=== PATIENT | female | born 1955 | race Caucasian/White ===

== ENCOUNTER 2019-05-15 07:19 | Emergency (ER) | payer BC, SELFPAY ==
--- OUTSIDE RECORDS SUMMARY | 2019-05-15 07:21 | XMS REPORT ---
:1955 [facility] Address [address] [place] [address] Dr. Farrar [address] [place] [address] Care Team Providers Name Role Phone DR MELISA BREWER Unavailable Unavailable Problems This patient has no known problems. Allergies, Adverse Reactions, Alerts This patient has no known allergies or adverse reactions. Medications This patient has no known medications. Encounters Start End Encounter Admission Attending Care Care Encounter Date/Time Date/Time Type Type Clinicians Facility Department ID 2018-08-24 2018-08-24 Outpatient Ramya BREWER [facility] [id number] 08:06:00 11:08:00 MELISA 2017-12-01 2017-12-01 Outpatient Ramya BREWER [facility] [id number] 09:30:00 10:50:00 MELISA 2017-10-06 2017-10-06 Outpatient Ramya BREWER [facility] [id number] 07:47:00 09:40:00 MELISA
[2019-05-15 08:09] LABS: Absolute Lymphocytes (CBC) 1.6 K/uL (0.7-4.9); Basophils % 0.3 % (0-1.3); Hematocrit 40.9 % (36.0-45.0); MPV 7.1 fL (7.6-11.3); RBC Red Blood Cell Count 4.52 M/uL (3.86-4.86)
[2019-05-15] MEDS ORDERED: MEPERIDINE HCL 25 MG/0.5 ML ONE (08:09)
[2019-05-15] MEDS ORDERED: ONDANSETRON 4 MG/2 ML VIAL ONE ×2 (08:09→09:56)
[2019-05-15 08:17] LABS: Urine Bacteria <20 /HPF (<20)
[2019-05-15 08:18] LABS: Urine Culture Reflex Order NOT NEEDED; Urine Mucus 1+ /HPF (NONE SEEN)
[2019-05-15 08:20] LABS: Albumin 4.1 g/dL (3.4-5.0); Bilirubin Direct 0.1 mg/dL (0-0.2); Bilirubin Total 0.4 mg/dL (0.2-1.0); Potassium 3.9 mmol/L (3.5-5.1); Protein, Total 8.5 g/dL (6.4-8.2)
--- NOTE | 2019-05-15 08:59 | RAD REPORT ---
EXAM DESCRIPTION: CTAbdomen Pelvis W Contrast - 05/15/2019 8:35 am CLINICAL HISTORY: Abdominal pain. LLQ abd pain/flank pain COMPARISON: No comparisons TECHNIQUE: Biphasic CT imaging of the abdomen and pelvis was performed with 100 ml non-ionic IV cont rast. All CT scans are performed using dose optimization technique as appropriate and may include automated exposure control or mA/KV adjustment according to patient size. FINDINGS: The lung bases are clear. The liver, spleen, pancreas, adrenal glands and right kidney are within normal limits. [address] one is present left UVJ resulting in mild left hydronephrosis. No bowel obstruction, free air, free fluid or abscess. The appendix is normal. No evidence of signi ficant lymphadenopathy. Anterolisthesis of L4 on 5 is seen, grade 1. Prominent disc herniation is identified at L5- S1, incom pletely assessed. IMPRESSION: 6 mm oblong stone left UVJ resulting in mild left hydronephrosis.
[2019-05-15] MEDS ORDERED: KETOROLAC 30 MG/ML INJ ONE (09:42)
[2019-05-15] MEDS ORDERED: TAMSULOSIN 0.4 MG SR CAP ONE (09:42)
--- NOTE | 2019-05-15 10:46 | ER ---
Nurse's Notes [facility] Name: Sarina Su Age: 63 yrs Sex: Female : 1955 Arrival Date: 05/15/2019 Time: 07:22 Bed 15 Private MD: Diagnosis: Ureterolithiasis Presentation: 05/14 07:32 Chief complaint: Patient states: LLQ pain and nausea that began 1 day ago . Pt reports ss that she has been under a lot of stress lately. Coronavirus screen: The patient has NOT traveled to a country currently being monitored by the [facility] within the last 14 days. Proceed with normal triage procedures. Ebola Screen: Patient denies exposure to infectious person. Patient denies travel to an Ebola-affected area in the 21 days before illness onset. Initial Sepsis Screen: Does the patient meet any 2 criteria? HR > 90 bpm. Does the patient have a suspected source of infection? No. Patient's initial sepsis screen is negative. Risk Assessment: Do you want to hurt yourself or someone else? Patient reports no desire to harm self or others. 07:32 Method Of Arrival: Ambulatory ss 07:32 Acuity: LUPE 3 ss Historical: - Allergies: 07:42 No Known Allergies; ss - Home Meds: 07:42 phentermine oral oral [Active]; ss - PMHx: 07:42 Depression; ss - Immunization history:: Adult Immunizations up to date. - Social history:: Smoking status: Patient denies any tobacco usage or history of. - Family history:: not pertinent. - Hospitalizations: : No recent hospitalization is reported. Screenin:30 Abuse screen: Denies threats or abuse. Denies injuries from another. Nutritional ph screening: No deficits noted. Tuberculosis screening: No symptoms or risk factors identified. Fall Risk None identified. Assessment: 08:00 General: Appears in no apparent distress. uncomfortable, Behavior is calm, cooperative, ph appropriate for age. Pain: Complains of pain in left lower quadrant. Neuro: Level of Consciousness is awake, alert, obeys commands, Oriented to person, place, time, situation. Cardiovascular: Capillary refill < 3 seconds in bilateral fingers Patient's skin is warm and dry. Respiratory: Airway is patent Respiratory effort is even, unlabored, Respiratory pattern is regular, symmetrical. GI: Abdomen is flat, non-distended, Reports lower abdominal pain, nausea. : Reports pain in left flank(s). Derm: Skin is intact, is healthy with good turgor, Skin is pink, warm \T\ dry. normal. Musculoskeletal: Circulation, motion, and sensation intact. Range of motion: intact in all extremities. 09:00 Reassessment: Patient appears in no apparent distress at this time. Patient and/or ph family updated on plan of care and expected duration. Pain level reassessed. Patient is alert, oriented x 3, equal unlabored respirations, skin warm/dry/pink. Vital Signs: 07:32 BP 156 / 93; Pulse 91; Resp 18; Temp 98.1(TE); Pulse Ox 98% on R/A; Weight 68.04 kg; ss Height 5 ft. 0 in. (152.40 cm); Pain 6/10; 09:15 BP 142 / 87; Pulse 84; Resp 18; Pulse Ox 98% on R/A; Pain 4/10; ph 07:32 Body Mass Index 29.29 (68.04 kg, 152.40 cm) ED Course: 07:22 Patient arrived in ED. mr 07:26 Arnold Villafuerte MD is Attending Physician. rn 07:32 Arm band placed on right wrist. ss 07:41 Triage completed. ss 07:45 Urine collected: clean catch specimen, clear. 3 07:48 Chelsea Tabares, RN is Primary Nurse. ph 07:50 Initial lab(s) drawn, by ny, sent to lab. Inserted saline lock: 20 gauge in right dh3 antecubital area, using aseptic technique. Blood collected. 08:30 Patient has correct armband on for positive identification. Bed in low position. Call ph light in reach. Pulse ox on. NIBP on. 08:30 No provider procedures requiring assistance completed. ph 08:36 CT Abd/Pelvis - IV Contrast Only In Process Unspecified. EDMS 10:45 Nikia Whitehead MD is Referral Physician. rn 10:45 IV discontinued, intact, bleeding controlled, No redness/swelling at site. Pressure ph dressing applied. Administered Medications: 08:13 Drug: Zofran (Ondansetron) 4 mg Route: IVP; Site: right antecubital; ph 08:30 Follow up: Response: No adverse reaction ph 08:14 Drug: Demerol 25 mg Route: IVP; Site: right antecubital; ph 08:45 Follow up: Response: No adverse reaction; Pain is decreased ph 08:55 Drug: TORadol - Ketorolac 15 mg Route: IVP; Site: right antecubital; ph 09:30 Follow up: Response: No adverse reaction; Pain is decreased ph 08:55 Drug: Zofran (Ondansetron) 4 mg Route: IVP; Site: right antecubital; ph 09:15 Follow up: Response: No adverse reaction ph 10:06 Drug: Flomax 0.4 mg Route: PO; ph 10:15 Follow up: Response: No adverse reaction ph Outcome: 10:46 Discharge ordered by . rn 11:24 Patient left the ED. ph 11:24 Discharged to home ambulatory, with friend. ph 11:24 Condition: good 11:24 Discharge instructions given to patient, Instructed on discharge instructions, follow up and referral plans. medication usage, Demonstrated understanding of instructions, follow-up care, medications, Prescriptions given X 3. Signatures: Dispatcher [employer] Magdalene Crespo Roman, MD MD rn Smirch, Shelby, RN RN Chelsea Tabares RN RN Omer, Sravani formerly [facility]
--- NOTE | 2019-05-15 10:46 | EDPHYS ---
Physician Documentation [facility] Name: Sarina Su Age: 63 yrs Sex: Female : 1955 Arrival Date: 05/15/2019 Time: 07:22 Bed 15 Private MD: ED Physician Arnold Villafuerte HPI: 05/14 07:39 This 63 yrs old Female presents to ER via Unassigned with complaints of rn Nausea, flank pain. 07:39 The patient presents to the emergency department with nausea, abdominal pain, of the rn left lower quadrant. 07:41 Onset: The symptoms/episode began/occurred yesterday. Possible causes: unknown. The rn symptoms are aggravated by movement, The symptoms are alleviated by nothing. Severity of symptoms: At their worst the symptoms were mild in the emergency department the symptoms are unchanged. The patient has not experienced similar symptoms in the past. The patient has not recently seen a physician. Reports LLQ/flank pain, began yesterday, assoc with nausea and constipation, thinks is related to her stressful week, had horse and and other social stressors. Patient and family member state that when she gets stressed out or anxious she usually reacts with nausea/vomiting and body aches. No fever. No trauma. No hx of kidney stones. Also reported with constipation has been straining to go to bathroom and thinks may have strained and pulled muscle. . Historical: - Allergies: 07:42 No Known Allergies; ss - Home Meds: 07:42 phentermine oral oral [Active]; ss - PMHx: 07:42 Depression; ss - Immunization history:: Adult Immunizations up to date. - Social history:: Smoking status: Patient denies any tobacco usage or history of. - Family history:: not pertinent. - Hospitalizations: : No recent hospitalization is reported. ROS: 07:41 Constitutional: Negative for fever, chills, and weight loss, Eyes: Negative for injury, rn pain, redness, and discharge, Neck: Negative for injury, pain, and swelling, Cardiovascular: Negative for chest pain, palpitations, and edema, Respiratory: Negative for shortness of breath, cough, wheezing, and pleuritic chest pain, Abdomen/GI: + left lower abd pain and nausea, + constipation Back: Negative for injury and pain, : Negative for injury, bleeding, discharge, and swelling, MS/Extremity: Negative for injury and deformity, Skin: Negative for injury, rash, and discoloration, Neuro: Negative for headache, weakness, numbness, tingling, and seizure. Exam: 07:41 Constitutional: This is a well developed, well nourished patient who is awake, alert, rn and in no acute distress. Head/Face: Normocephalic, atraumatic. Cardiovascular: Regular rate and rhythm. No pulse deficits. Respiratory: No increased work of breathing, no retractions or nasal flaring. Abdomen/GI: soft, + LLQ tenderness, mild, non-distended, no masses Back: No spinal tenderness. No costovertebral tenderness. Full range of motion. Skin: Warm, dry with normal turgor. Normal color with no rashes, no lesions, and no evidence of cellulitis. MS/ Extremity: Pulses equal, no cyanosis. Neurovascular intact. Full, normal range of motion. Equal circumference. No tenderness at hip. Neuro: Awake and alert, GCS 15, oriented to person, place, time, and situation. Cranial nerves II-XII grossly intact. Motor strength 5/5 in all extremities. Sensory grossly intact. Cerebellar exam normal. Vital Signs: 07:32 BP 156 / 93; Pulse 91; Resp 18; Temp 98.1(TE); Pulse Ox 98% on R/A; Weight 68.04 kg; ss Height 5 ft. 0 in. (152.40 cm); Pain 6/10; 09:15 BP 142 / 87; Pulse 84; Resp 18; Pulse Ox 98% on R/A; Pain 4/10; ph 07:32 Body Mass Index 29.29 (68.04 kg, 152.40 cm) ss MDM: 07:26 Patient medically screened. rn 10:44 Differential diagnosis: Nonspecific abd pain, diverticulitis, viral gastroenteritis, rn gastroenteritis, kidney stone. Data reviewed: vital signs, nurses notes, lab test result(s), radiologic studies, CT scan, and as a result, I will discharge patient. Counseling: I had a detailed discussion with the patient and/or guardian regarding: the historical points, exam findings, and any diagnostic results supporting the discharge/admit diagnosis, lab results, radiology results, the need for outpatient follow up, to return to the emergency department if symptoms worsen or persist or if there are any questions or concerns that arise at home. Response to treatment: the patient's symptoms have markedly improved after treatment, and as a result, I will discharge patient. Special discussion: I discussed with the patient/guardian in detail that at this point there is no indication for admission to the hospital. It is understood, however, that if the symptoms persist or worsen the patient needs to return immediately for re-evaluation. Based on the history and exam findings, there is no indication for further emergent testing or inpatient evaluation. I discussed with the patient/guardian the need to see the primary care provider for further evaluation of the symptoms. I discussed with the patient/guardian the need to see the urologist for further evaluation of the symptoms. ED course: Feels much better, UVJ stone likely now in bladder, will dc home with pcp and urology f/u. . 05/14 07:39 Order name: Basic Metabolic Panel; Complete Time: 08:35 rn 05/14 07:39 Order name: CBC with Diff; Complete Time: 08:35 rn 05/14 07:39 Order name: Creatinine for Radiology; Complete Time: 08:35 rn 05/14 07:39 Order name: Hepatic Function; Complete Time: 08:35 rn 05/14 07:39 Order name: Lipase; Complete Time: 08:35 rn 05/14 07:39 Order name: Urine Microscopic Only; Complete Time: 08:35 rn 05/14 07:39 Order name: IV Saline Lock; Complete Time: 07:49 rn 05/14 07:39 Order name: CT Abd/Pelvis - IV Contrast Only; Complete Time: 09:11 rn 05/14 08:03 Order name: Urine Dipstick--Ancillary (enter results); Complete Time: 11:16 bd 05/14 07:39 Order name: Labs collected and sent; Complete Time: 07:49 rn 05/14 07:39 Order name: Urine Dipstick-Ancillary (obtain specimen); Complete Time: 07:49 rn Administered Medications: 08:13 Drug: Zofran (Ondansetron) 4 mg Route: IVP; Site: right antecubital; ph 08:30 Follow up: Response: No adverse reaction ph 08:14 Drug: Demerol 25 mg Route: IVP; Site: right antecubital; ph 08:45 Follow up: Response: No adverse reaction; Pain is decreased ph 08:55 Drug: TORadol - Ketorolac 15 mg Route: IVP; Site: right antecubital; ph 09:30 Follow up: Response: No adverse reaction; Pain is decreased ph 08:55 Drug: Zofran (Ondansetron) 4 mg Route: IVP; Site: right antecubital; ph 09:15 Follow up: Response: No adverse reaction ph 10:06 Drug: Flomax 0.4 mg Route: PO; ph 10:15 Follow up: Response: No adverse reaction ph Disposition: 05/15/19 10:46 Discharged to Home. Impression: Ureterolithiasis. - Condition is Stable. - Discharge Instructions: Kidney Stones, Dietary Guidelines to Help Prevent Kidney Stones. - Prescriptions for Zofran ODT 4 mg Oral tablet,disintegrating - place 1 tablet by TRANSLINGUAL route every 8 hours As needed; 20 tablet. Ibuprofen 800 mg Oral Tablet - take 1 tablet by ORAL route every 12 hours As needed take with food; 20 tablet. Flomax 0.4 mg Oral Capsule, Sust. Release 24 hr - take 1 capsule by ORAL route once daily 1/2 hour following the same meal each day. Stop taking once pain has passed or stone has passed.; 3 capsule. - Medication Reconciliation Form, Thank You Letter, Antibiotic Education, Prescription Opioid Use form. - Follow up: Nikia Whitehead MD; When: As needed; Reason: Recheck today's complaints, Re-evaluation by your physician. - Problem is new. - Symptoms have improved. Signatures: Dispatcher [employer] EDArnold Hercules MD MD rn Smirch, Shelby, RN RN ss Hall, Patricia, RN RN ph Corrections: (The following items were deleted from the chart) 11:24 10:46 05/15/2019 10:46 Discharged to Home. Impression: Ureterolithiasis. Condition is ph Stable. Forms are Medication Reconciliation Form, Thank You Letter, Antibiotic Education, Prescription Opioid Use. Follow up: Nikia Whitehead; When: As needed; Reason: Recheck today's complaints, Re-evaluation by your physician. Problem is new. Symptoms have improved. rn
[2019-05-15 11:02] LABS: Urine Blood 1+ (NEG); Urine Glucose NEGATIVE (NEG); Urine Protein TRACE (NEG); Urine Specific Gravity >1.030 (1.005-1.030)
[2019-05-15 11:31] VITALS: TEMP 98.1; O2SAT 98
[2019-05-15 11:32] VITALS: BP 142/87
== END 2019-05-15 11:24 | disposition home or self-care (01) ==
LOC: ER 07:19
DX: N20.1 Calculus of ureter (principal)
CPT/HCPCS: 85025; 80048; 36415; 80076; 83690; 74177; 96375; 96374; 99284; Q9967; J2175; J2405 ×2; 81003; 81015

== ENCOUNTER 2019-05-16 21:23 | Emergency (ER) | payer BC ==
--- OUTSIDE RECORDS SUMMARY | 2019-05-16 21:25 | XMS REPORT ---
:1955 [facility] [address] [place] [address] Dr. [address] [place] [address] Care Team Providers Name Role Phone DR MELISA BREWER Unavailable Unavailable Problems This patient has no known problems. Allergies, Adverse Reactions, Alerts This patient has no known allergies or adverse reactions. Medications This patient has no known medications. Encounters Start End Encounter Admission Attending Care Care Encounter Date/Time Date/Time Type Type Clinicians Facility Department ID 2018-08-24 2018-08-24 [facility] [id number] 08:06:00 11:08:00 MELISA 2017-12-01 2017-12-01 Outpatient Ramya BREWER [facility] [id number] 09:30:00 10:50:00 MELISA 2017-10-06 2017-10-06 Outpatient Ramya BREWER [facility] [id number] 07:47:00 09:40:00 MELISA
[2019-05-16] MEDS ORDERED: ONDANSETRON 4 MG/2 ML VIAL ONE (21:36)
[2019-05-16] MEDS ORDERED: KETOROLAC 30 MG/ML INJ ONE (21:36)
[2019-05-16] MEDS ORDERED: HYDROMORPHONE HCL 1 MG/ML INJ ONE (21:36)
[2019-05-16] MEDS ORDERED: NA CHLORIDE 0.9% 1,000 ML ONE (21:37)
[2019-05-16] MEDS ORDERED: CEFTRIAXONE/SWI 1gm 1 GM/10 ML SYR ONE (21:37)
[2019-05-16 22:53] LABS: Absolute Lymphocytes (CBC) 1.9 K/uL (0.7-4.9); Basophils % 0.4 % (0-1.3); Hematocrit 33.7 % (36.0-45.0); MPV 7.1 fL (7.6-11.3); RBC Red Blood Cell Count 3.75 M/uL (3.86-4.86)
[2019-05-16 23:12] LABS: Albumin 3.1 g/dL (3.4-5.0); Bilirubin Direct 0.1 mg/dL (0-0.2); Bilirubin Total 0.5 mg/dL (0.2-1.0); Potassium 3.3 mmol/L (3.5-5.1); Protein, Total 6.9 g/dL (6.4-8.2)
[2019-05-17 01:18] LABS: Urine Culture Reflex Order NOT NEEDED
[2019-05-17 01:19] LABS: Urine RBC <5 /HPF (NONE SEEN); Urine Urothelial Cells <5 /HPF (NONE SEEN)
[2019-05-17 01:20] LABS: Urine Bacteria <20 /HPF (<20)
[2019-05-17] MEDS ORDERED: FENTANYL CITR 100 MCG/2 ML ONE (02:22)
--- NOTE | 2019-05-17 03:09 | ER ---
Nurse's Notes [facility] Name: Sarina Su Age: 63 yrs Sex: Female : 1955 Arrival Date: 05/16/2019 Time: 21:24 Bed 2 Private MD: Diagnosis: Calculus of kidney with calculus of ureter Presentation: 05/15 21:32 Chief complaint: Patient states: "I was here the other day and saw Dr. Villafuerte for a jd3 kidney stone and was told that it should pass. I took my ibuprofen and Flomax today and it is not helping the this evening. I have an appointment tomorrow with a urologist tomorrow about the stone as well.". Coronavirus screen: The patient has NOT traveled to a country currently being monitored by the CDC within the last 14 days. The patient has NOT had contact with any known and/or suspected case of coronavirus. Proceed with normal triage procedures. Ebola Screen: Patient negative for fever greater than or equal to 101.5 degrees Fahrenheit, and additional compatible Ebola Virus Disease symptoms. Initial Sepsis Screen: Does the patient meet any 2 criteria? No. Patient's initial sepsis screen is negative. Does the patient have a suspected source of infection? No. Patient's initial sepsis screen is negative. Risk Assessment: Do you want to hurt yourself or someone else? Patient reports no desire to harm self or others. 21:32 Acuity: LUPE 3 jd3 21:32 Method Of Arrival: Ambulatory jd3 Triage Assessment: 20:00 General: Behavior is cooperative, anxious, crying, restless. lw1 20:00 Pain: Pain currently is 10 out of 10 on a pain scale. EENT: Poor dentition noted. lw1 Neuro: No deficits noted. Cardiovascular: No deficits noted. Respiratory: No deficits noted. : No deficits noted. Derm: No deficits noted. Musculoskeletal: No deficits noted. 22:10 General: Appears uncomfortable. Pain: Complains of pain in anterior aspect of left lw1 lateral abdomen and abdomen diffusely Pain currently is 10 out of 10 on a pain scale. GI: No deficits noted. Historical: - Allergies: 21:37 No Known Allergies; jd3 - Home Meds: 21:37 phentermine Oral [Active]; jd3 - PMHx: 21:37 Depression; jd3 - PSHx: 21:37 None; jd3 - Immunization history:: Adult Immunizations up to date. - Social history:: Smoking status: Patient denies any tobacco usage or history of. Screenin:30 Abuse screen: Denies threats or abuse. Denies injuries from another. Nutritional lw1 screening: No deficits noted. Tuberculosis screening: No symptoms or risk factors identified. Fall Risk Assessment: 21:42 Reassessment: Patient appears in no apparent distress at this time. pt and pt spouse sg state " we just had the CT studies done Wednesday morning with , we have the follow up appointment scheduled tomorrow morning, shes just too uncomfortable now so we are here for something to help control the pain." request to see the doctor prior to having more studies done at this time. 22:45 GI: Bowel sounds present X 4 quads. Abd is soft Abdomen is tender to palpation in left lw1 lower quadrant. : No deficits noted. 05/16 01:22 Reassessment: pt reports " I need to get out of here, I need you to take all of these sg wires off of me, leave this in my hand so I can have another pain shot, let me go home so I can make it to my appointment tomorrow morning with the kidney doctor. Why the other morning did the report from the CT come back so fast, but tonight its taking so long?!" pt educated on the processes of radiology over night as opposed to the process of the day radiology reports and readings. pt stated understanding, to bedside to update pt on results of CT scan and need for transfer at this time. 03:01 Pain: Denies pain. lw1 03:02 Reassessment: PATIENT STATED THAT SHE IS FEELING BETTER AFTER THE MEDICATION, UPDATED lw1 PATIENT ON ACCEPTANCE OF HOSPITAL AND THE ARRIVAL OF AMBULANCE. PATIENT VERBALIZED UNDERSTANDING AND AGREED. Vital Signs: 05/15 21:36 BP 144 / 62; Pulse 87; Resp 17 S; Temp 98.0(TE); Pulse Ox 97% on R/A; Weight 68.04 kg jd3 (R); Height 5 ft. 0 in. (152.40 cm) (R); Pain 10/10; 22:54 BP 121 / 59; Pulse 84; Resp 22; Pulse Ox 100% on R/A; Pain 0/10; lw1 23:35 BP 134 / 75; Pulse 86; Resp 20; Pulse Ox 99% on R/A; Pain 3/10; lw1 05/16 00:14 BP 137 / 83; Pulse 98; Resp 20; Pulse Ox 98% on R/A; Pain 3/10; lw1 02:57 BP 148 / 75; Pulse 94; Resp 20; Temp 98.0; Pulse Ox 100% on R/A; Pain 0/10; lw1 05/15 21:36 Body Mass Index 29.29 (68.04 kg, 152.40 cm) jd3 ED Course: 05/15 21:24 Patient arrived in ED. cl3 21:26 Dov Albarado MD is Attending Physician. emily 21:28 Humberto Lowery MD is Attending Physician. bb 21:36 Triage completed. jd3 21:36 Arm band placed on. jd3 21:46 Emery Cazares, RN is Primary Nurse. lw1 22:10 Inserted saline lock: 22 gauge in right hand, using aseptic technique. Blood collected. lw1 22:41 CT Stone Protocol In Process Unspecified. EDMS 22:41 Repeat lab(s) drawn. by me, sent to lab. sg 22:43 No provider procedures requiring assistance completed. Initial lab(s) drawn, by me, lw1 sent to lab. 22:55 Patient has correct armband on for positive identification. Bed in low position. Call lw1 light in reach. Side rails up X 1. Pulse ox on. NIBP on. Noise minimized. Lights dimmed. Turned to right side. 05/16 00:00 Urine collected: clean catch specimen, clear. sg 00:25 Urine collected: has been sent to lab as ordered. sg 04:09 Patient transferred, IV remains in place. intact, No redness/swelling at site. lw1 Administered Medications: 05/15 22:13 Drug: TORadol 30 mg Route: IVP; Site: right hand; ea 22:40 Follow up: Response: No adverse reaction; Pain is decreased; Anxiety decreased; Blood lw1 pressure is lowered 22:16 Drug: Dilaudid 1 mg Route: IVP; Site: right hand; ea 22:39 Follow up: Response: No adverse reaction; Pain is decreased; Anxiety decreased; Blood lw1 pressure is lowered 22:16 Drug: Zofran (Ondansetron) 4 mg Route: IVP; Site: right hand; ea 22:39 Follow up: Response: No adverse reaction; Nausea is decreased 22:17 Drug: NS 0.9% 1000 ml Route: IV; Rate: 1 bolus; Site: right hand; ea 05/16 03:30 Follow up: IV Status: Completed infusion; IV Intake: 1000ml 05/15 22:38 Drug: Rocephin 1 grams Route: IV; Rate: 1 per protocol; Site: right hand; lw05/16 02:58 Follow up: Response: No adverse reaction; IV Intake: 1000ml 02:25 Drug: fentaNYL (PF) 25 mcg Route: IVP; Site: right hand; lw 02:58 Follow up: Response: Pain is decreased lw 03:59 Drug: Ativan 1 mg {Note: RIGHT HAND 22 GA.} Route: IM; Site: Other; lw 04:06 Follow up: GIVEN FOR AMBULANCE TRANSPORT lw Intake: 02:58 IV: 1000ml; Total: 1000ml. lw 03:30 IV: 1000ml; Total: 2000ml. lw Outcome: 03:08 ER care complete, transfer ordered by . tw4 04:00 Transferred by ground EMS to [facility]. lw1 04:00 Condition: improved 04:05 Patient left the ED. lw1 04:08 Transferred by ground EMS Note: report called to Ladan ESQUEDA at [facility] Addendum: 05/21/2019 08:47 Addendum: Culture Results: Positive urine culture. Phone call Attempt #1 Pt transferred s s to [facility]. Called and spoke with press operator automatic who states that patient has been discharged home. Signatures: Dispatcher [employer] EDTed Jaquez RN RN sg Anderson, Corey, MD MD cha Ballard, Brenda, RN RN bb Smirch, Shelby, RN RN ss Antunez, Elena, RN RN ea Davies, Jonathon, RN RN jd3 Wadley, Terrence, MD MD twMax Holman 3 Emery Cazares RN RN lw1
--- NOTE | 2019-05-17 03:09 | EDPHYS ---
Physician Documentation [facility] Name: Sarina Su Age: 63 yrs Sex: Female : 1955 Arrival Date: 05/16/2019 Time: 21:24 Bed 2 Private MD: ED Physician Humberto Lowery HPI: 05/16 03:09 This 63 yrs old Female presents to ER via Ambulatory with complaints of tw4 Possible Kidney Stone. 03:09 The patient complains of pain in the left mid back. The pain does not radiate. Onset: tw4 The symptoms/episode began/occurred yesterday. Modifying factors: The symptoms are alleviated by nothing. the symptoms are aggravated by nothing. Associated signs and symptoms: The patient has no apparent associated signs or symptoms. Severity of pain: At its worst the pain was moderate. The patient has not experienced similar symptoms in the past. Historical: - Allergies: 05/15 21:37 No Known Allergies; jd3 - Home Meds: 21:37 phentermine Oral [Active]; jd3 - PMHx: 21:37 Depression; jd3 - PSHx: 21:37 None; jd3 - Immunization history:: Adult Immunizations up to date. - Social history:: Smoking status: Patient denies any tobacco usage or history of. ROS: 05/16 03:09 Constitutional: Negative for fever, chills, and weight loss, Eyes: Negative for injury, tw4 pain, redness, and discharge, Cardiovascular: Negative for chest pain, palpitations, and edema, Respiratory: Negative for shortness of breath, cough, wheezing, and pleuritic chest pain, Abdomen/GI: Negative for abdominal pain, nausea, vomiting, diarrhea, and constipation, MS/Extremity: Negative for injury and deformity, Skin: Negative for injury, rash, and discoloration, Neuro: Negative for headache, weakness, numbness, tingling, and seizure. Back: Positive for flank pain, Negative for injury or acute deformity, decreased range of motion, pain at rest. Exam: 03:09 Constitutional: This is a well developed, well nourished patient who is awake, alert, tw4 and in no acute distress. Head/Face: Normocephalic, atraumatic. Cardiovascular: Regular rate and rhythm with a normal S1 and S2. No gallops, murmurs, or rubs. Normal PMI, no JVD. No pulse deficits. Respiratory: Lungs have equal breath sounds bilaterally, clear to auscultation and percussion. No rales, rhonchi or wheezes noted. No increased work of breathing, no retractions or nasal flaring. Abdomen/GI: Soft, non-tender, with normal bowel sounds. No distension or tympany. No guarding or rebound. No evidence of tenderness throughout. Back: No spinal tenderness. No costovertebral tenderness. Full range of motion. MS/ Extremity: Pulses equal, no cyanosis. Neurovascular intact. Full, normal range of motion. Neuro: Awake and alert, GCS 15, oriented to person, place, time, and situation. Cranial nerves II-XII grossly intact. Motor strength 5/5 in all extremities. Sensory grossly intact. Cerebellar exam normal. Normal gait. Vital Signs: 05/15 21:36 BP 144 / 62; Pulse 87; Resp 17 S; Temp 98.0(TE); Pulse Ox 97% on R/A; Weight 68.04 kg jd3 (R); Height 5 ft. 0 in. (152.40 cm) (R); Pain 10/10; 22:54 BP 121 / 59; Pulse 84; Resp 22; Pulse Ox 100% on R/A; Pain 0/10; lw1 23:35 BP 134 / 75; Pulse 86; Resp 20; Pulse Ox 99% on R/A; Pain 3/10; lw1 05/16 00:14 BP 137 / 83; Pulse 98; Resp 20; Pulse Ox 98% on R/A; Pain 3/10; lw1 02:57 BP 148 / 75; Pulse 94; Resp 20; Temp 98.0; Pulse Ox 100% on R/A; Pain 0/10; lw1 05/15 21:36 Body Mass Index 29.29 (68.04 kg, 152.40 cm) jd3 MDM: 05/15 21:26 Patient medically screened[address] [facility] 05/16 03:09 Differential diagnosis: nephrolithiasis. Data reviewed: vital signs, nurses notes. Data tw4 reviewed: lab test result(s), CBC, electrolytes, radiologic studies, CT scan. Data interpreted: Pulse oximetry: Interpretation: normal. Counseling: I had a detailed discussion with the patient and/or guardian regarding: the historical points, exam findings, and any diagnostic results supporting the discharge/admit diagnosis, lab results, radiology results. Medication response: Response to treatment: and as a result, I will admit patient. 05/15 21:28 Order name: Basic Metabolic Panel; Complete Time: 00:[address] [facility] 05/16 00:44 Interpretation: Normal except: CRE 1.53; K 3.3; GLUC 126; GFR 34. [facility] 05/15 21:28 Order name: CBC with Diff; Complete Time: 00:[address] [facility] 05/16 00:44 Interpretation: Normal except: WBC 8.5; RBC 3.75; HGB 11.3; HCT 33.7; MPV 7.1. [facility] 05/15 21:28 Order name: Creatinine for Radiology; Complete Time: 00:[address] [facility] 05/16 00:45 Interpretation: Normal except: CRE 1.51; GFR 35. [facility] 05/15 21:28 Order name: Hepatic Function; Complete Time: 00:[address] [facility] 05/16 00:45 Interpretation: ALK 118; ALB 3.1; GLOB 3.8; A/G 0.8. [facility] 05/15 21:28 Order name: Lipase; Complete Time: 00:[address] [facility] 05/16 00:45 Interpretation: Within normal limits: LIP 137. [facility] 05/15 21:28 Order name: Urine Culture [facility] 05/15 21:28 Order name: CT Stone Protocol [facility] 05/16 00:31 Order name: Urine Microscopic Only; Complete Time: 02:46 [facility] 05/15 21:28 Order name: IV Saline Lock; Complete Time: 22:[address] [facility] 05/15 21:28 Order name: Labs collected and sent; Complete Time: 22:[address] [facility] 05/15 21:28 Order name: Urine Dipstick-Ancillary (obtain specimen); Complete Time: 00:[address] [facility] Administered Medications: 05/15 22:13 Drug: TORadol 30 mg Route: IVP; Site: right hand; ea 22:40 Follow up: Response: No adverse reaction; Pain is decreased; Anxiety decreased; Blood lw1 pressure is lowered 22:16 Drug: Dilaudid 1 mg Route: IVP; Site: right hand; ea 22:39 Follow up: Response: No adverse reaction; Pain is decreased; Anxiety decreased; Blood lw1 pressure is lowered 22:16 Drug: Zofran (Ondansetron) 4 mg Route: IVP; Site: right hand; 22:39 Follow up: Response: No adverse reaction; Nausea is decreased 22:17 Drug: NS 0.9% 1000 ml Route: IV; Rate: 1 bolus; Site: right hand; 05/16 03:30 Follow up: IV Status: Completed infusion; IV Intake: 1000ml 05/15 22:38 Drug: Rocephin 1 grams Route: IV; Rate: 1 per protocol; Site: right hand; [facility] 05/16 02:58 Follow up: Response: No adverse reaction; IV Intake: 1000ml 02:25 Drug: fentaNYL (PF) 25 mcg Route: IVP; Site: right hand; 02:58 Follow up: Response: Pain is decreased 03:59 Drug: Ativan 1 mg {Note: RIGHT HAND 22 GA.} Route: IM; Site: Other; 04:06 Follow up: GIVEN FOR AMBULANCE TRANSPORT Disposition: 05/17/19 03:08 Transfer ordered to [facility]. Diagnosis is Calculus of kidney with calculus of ureter. - Reason for transfer: Higher level of care. - Accepting physician is Dr Edwards. - Condition is Stable. - Problem is new. - Symptoms have improved. Signatures: Dispatcher [employer] EDMS Ted Curtis, RN Dov Alegria MD MD cha Antunez, Elena, RN Tenzin Arauz ea, RN RN jd3 Wadley, Terrence, MD MD tw4 Emery Cazares RN RN lw1 Corrections: (The following items were deleted from the chart) 04:05 03:08 05/17/2019 03:08 Transfer ordered to [facility]. Diagnosis is Calculus of lw1 kidney with calculus of ureter. Reason for transfer: Higher level of care. Accepting physician is Dr Edwards. Condition is Stable. Problem is new. Symptoms have improved. tw4
[2019-05-17] MEDS ORDERED: LORazepam 2 MG/ML VIAL ONE (03:50)
[2019-05-17 09:08] VITALS: BP 148/75; TEMP 98; O2SAT 100
--- NOTE | 2019-05-17 11:07 | RAD REPORT ---
EXAM DESCRIPTION: Stone Protocol CLINICAL HISTORY: 63 years Female FLANK PAIN COMPARISON: May 15, 2019. TECHNIQUE: Images were obtained in axial, sagittal, and coronal planes. This exam was performed according to our departmental dose-optimization program which includes use of Automated Exposure Control, adjustment of the mA and/or kV according to patient size and/or use of i terative reconstruction technique. FINDINGS: Contrast is identified within the left collecting system. Moderate left hydronephrosis and hydroureter seen. Persistent 7 mm calculus left ureterovesicular junction. New perinephric stranding and ill-defined fluid inferior left kidney likely related to extravasation of urine. No obstructing renal calcification on right. No hydronephrosis on right. No additional abnormality in volving the bladder. No abnormality involving the liver, spleen, pancreas, gallbladder or adrenal glands bilaterally. No dilatation abdominal aorta. No adenopathy or abnormal fluid collections seen. Appendix within normal limits. No bowel obstruction, perforation, or inflammation. Moderate-sized hiatal hernia. Airspace attenuation lateral right lower lobe consistent with atelectat ic change versus infiltrate. No acute osseous abnormality. IMPRESSION: Persistent 7 mm calculus left ureterovesicular junction with associated moderate left hy dronephrosis and hydroureter. Perinephric stranding and ill-defined fluid inferior left kidney likely related to inferior forniceal rupture and extravasation of urine. Electronically signed by: Nila Herron MD 05/16/2019 10:59 PM CDT Due to temporary technical issues with the PACS/Fluency reporting system, reports are being signed by the in house radiologist as a courtesy to ensure prompt reporting. The interpreting radiologist is f ully responsible for the content of the report.
== END 2019-05-17 04:05 | disposition short-term general hospital (02) ==
LOC: ER 21:23
DX: N20.2 Calculus of kidney with calculus of ureter (principal); F32.9 Major depressive disorder, single episode, unspecified
CPT/HCPCS: 96361; 87088; 85025; 87086; 80048; 36415; 80076; 87077; 87186; 81015; 83690; 76377; 74176; 96375; 96372; 96374; 99285; J3010; J1170; J0696; J7030; J2405

== ENCOUNTER 2020-11-10 08:47 | Inpatient (IN) | payer BC ==
--- OUTSIDE RECORDS SUMMARY | 2020-11-10 08:50 | XMS REPORT | Continuity of Care Document ---
:1955 Author Organization [facility] t Address [address] [place] [address] Care Team Providers Name Role Phone Asked, No Pcp Primary Care Physician Unavailable UVALDO Attending Clinician Unavailable DR OSMAN Attending Clinician Unavailable UVALDO Admitting Clinician Unavailable DR OSMAN Admitting Clinician Unavailable Problems Condition Condition Condition Status Onset Resolution Last Treating Co mments Source Name Details Category Date Date Treatment Clinician Date Nephrolith Nephrolith Disease Active 2019-0 M ethodi iasis iasis 3 00:00: [facility] l DEMETRICE (acute DEMETRICE (acute Disease Active 2020-0 M ethodi kidney kidney 3 st injury) injury) 00:00: Hospita 00 l Allergies, Adverse Reactions, Alerts This patient has no known allergies or adverse reactions. Social History Social Habit Start Date Stop Date Quantity Comments Source Sex Assigned [birth year] [facility] 00:00:00 00:00:00 Smoking Status Start Date Stop Date Source Unknown if ever smoked [facility] Medications This patient has no known medications. Procedures This patient has no known procedures. Plan of Care Planned Activity Planned Date Details Comments Source Future Scheduled Test COLONOSCOPY SCREENING [facility] [code = COLONOSCOPY SCREENING] Future Scheduled Test SHINGLES VACCINES (#1) [facility] [code = SHINGLES VACCINES (#1)] Future Scheduled Test INFLUENZA VACCINE [code [facility] = INFLUENZA VACCINE] Future Scheduled Test COVID-19 VACCINE (1) [facility] [code = COVID-19 VACCINE (1)] Future Scheduled Test Hepatitis C screening [facility] (procedure) [code = 536985550] Future Scheduled Test Screening for malignant [facility] neoplasm of cervix (procedure) [code = 275746907] Future Scheduled Test BREAST CANCER SCREENING [facility] [code = BREAST CANCER SCREENING] Encounters Start End Encounter Admission Attending Care Care Encounter Source Date/Time Date/Time Type Type Clinicians Facility Department ID 2019-05-17 2019-05-19 Inpatient EMILIANO BAILON [facility] [id number] [place] 00:00:00 00:00:[address] 2018-08-24 2018-08-24 Outpatient Ramya BREWER [facility] [id number] [place] 08:06:00 11:08:00 [facility] 2017-12-01 2017-12-01 [facility] [id number] [place] 09:30:00 [facility] 2017-10-06 2017-10-06 Outpatient Ramya BREWER [facility] [id number] [place] 07:47:00 09:40:00 [facility] Results This patient has no known results.
[2020-11-10] MEDS ORDERED: ONDANSETRON 4 MG/2 ML VIAL ONE ×2 (11:19→18:28)
[2020-11-10] MEDS ORDERED: NA CHLORIDE 0.9% 1,000 ML ONE ×2 (11:19→17:25)
[2020-11-10] MEDS ORDERED: HYDROMORPHONE HCL 0.5 MG/0.5 ML INJ ONE (11:19)
[2020-11-10 11:41] LABS: Absolute Lymphocytes (CBC) 1.2 K/uL (0.7-4.9); Basophils % 0.6 % (0-1.3); Hematocrit 40.8 % (36.0-45.0); Lymphocytes % 15.3 % (15.3-44.8); MPV 6.1 fL (7.6-11.3); RBC Red Blood Cell Count 4.48 M/uL (3.86-4.86)
[2020-11-10 11:59] LABS: Albumin 4.1 g/dL (3.4-5.0); Bilirubin Total 0.7 mg/dL (0.2-1.0); Potassium 4.1 mmol/L (3.5-5.1); Protein, Total 9.4 g/dL (6.4-8.2)
[2020-11-10 13:37] LABS: Urine Blood Negative (Negative); Urine Glucose Negative (Negative); Urine Protein Negative (Negative); Urine pH 5.5 (5.0-7.0)
--- NOTE | 2020-11-10 13:54 | P.HP ---
Certification for Inpatient With expected LOS: >2 Midnights <Evelyn Salcedo - Last Filed: 11/10/20 14:45> Patient admitted to: Inpatient With expected LOS: >2 Midnights Patient will require the following post-hospital care: None Practitioner: I am a practitioner with admitting privileges, knowledge of patient current condition, hospital course, and medical plan of care. Services: Services provided to patient in accordance with Admission requirements found in Title 42 Section 412.3 of the Code of Federal Regulations <Celestine Glez - Last Filed: 11/10/20 16:16> Patient History Date of Service: 11/10/20 Reason for admission: SBO History of Present Illness: 65 year old White female presents to ED after two days of severe abdominal pain , nausea , vomiting and constipation. She stated that on evening after being in her usual state of health she began to experience sharp lower abdominal pain that radiated throughout all four quadrants. The pain waxed and waned and was about a 4/10. The pain was sudden and she did not take any medications to alleviate the discomfort. The abdominal pain was quickly followed by constipation. Her abdominal pain continued and she developed nausea and then vomited two times yesterday. She was able to drink water and keep it down. Today , her pain had intensified and she came to ED for further evaluation. She denies any recent fever , hemoptysis, diarrhea , hematochezia, melena. Upon arrival to the ED, she received zofran ,tylenol. <Evelyn Salcedo - Last Filed: 11/10/20 14:45> Date of Service: 11/10/20 Home medications list reviewed: Yes - Past Medical/Surgical History Past Medical History: Patient denies medical history -: Bariatric procedure Psychosocial/ Personal History: Home - Family History Family History: Reviewed- Non-Contributory - Social History Smoking Status: Unknown if ever smoked Alcohol use: No CD- Drugs: No Caffeine use: No Place of Residence: Home <NewtonCelestine - Last Filed: 11/10/20 16:16> Allergies No Known Allergies Allergy (Verified 04/01/16 09:57) Home Medications: Biotin 1,000 mcg PO DAILY 03/31/16 Multivitamin [Multivitamins] 1 each PO DAILY 03/31/16 Phentermine HCl [Adipex-P] 37.5 mg PO EVERY 7TH DAY 03/31/16 Naproxen Sodium [Aleve] 220 mg PO DAILY PRN 04/01/16 Review of Systems General: Unremarkable Eyes: Unremarkable ENT: Unremarkable Respiratory: Unremarkable Cardiovascular: Unremarkable Gastrointestinal: As per HPI Musculoskeletal: Unremarkable Integumentary: Unremarkable Neurological: Unremarkable <Evelyn Salcedo - Last Filed: 11/10/20 14:45> Physical Examination - Physical Exam General: Alert, In no apparent distress, Oriented x3 HEENT: Atraumatic, Normocephalic, PERRLA, Mucous membr. moist/pink, Sclerae nonicteric Neck: Supple, 2+ carotid pulse no bruit, Without JVD or thyroid abnormality Respiratory: Clear to auscultation bilaterally Cardiovascular: No edema, Normal pulses, Regular rate/rhythm Gastrointestinal: Hypoactive, No masses, No guarding, Tenderness Musculoskeletal: No clubbing, No swelling, No contractures, No erythema, No tenderness, No warmth Integumentary: No rashes, No breakdown, No significant lesion, No tenderness/swelling, No erythema Neurological: Normal gait, Normal speech, Normal strength at 5/5 x4 extr - Studies Laboratory Data (last 24 hrs) 11/10/20 11:25: Sodium 135 L, Potassium 4.1, BUN 20 H, Creatinine 1.03, Glucose 118 H, Total Bilirubin 0.7, AST 24, ALT 31, Alkaline Phosphatase 171 H, Lipase 146 11/10/20 11:25: WBC 7.60, Hgb 13.8, Hct 40.8, Plt Count 649 H <Evelyn Salcedo - Last Filed: 11/10/20 14:45> - Studies Laboratory Data (last 24 hrs) 11/10/20 11:25: Sodium 135 L, Potassium 4.1, BUN 20 H, Creatinine 1.03, Glucose 118 H, Total Bilirubin 0.7, AST 24, ALT 31, Alkaline Phosphatase 171 H, Lipase 146 11/10/20 11:25: WBC 7.60, Hgb 13.8, Hct 40.8, Plt Count 649 H <Celestine Glez - Last Filed: 11/10/20 16:16> Assessment and Plan - Plan Assessment: 65 year old female here for evaluation of nausea , vomiting , constipation and abdominal pain x 2-3 days. Plan: Acute abdominal pain secondary to small bowel obstruction and internal hernia: CT abdomen pending NPO from now IV fluids Surgery consulted. IV abx cipro/flagyl started. She will undergo surgery tomorrow. Pain meds as needed Monitor electrolytes Discharge Plan: Home Plan to discharge in: 72 Hours - Advance Directives Does patient have a Living Will: No Does patient have a Durable POA for Healthcare: No Time Spent Managing Pts Care (In Minutes): 55 <Evelyn Salcedo - Last Filed: 11/10/20 14:45> - Plan Case discussed in detail with physician chiropractor assistant. Agree with plan of care. Will discuss further with surgery. Patient remains n.p.o. Continue IV antibiotic therapy and IV fluids. Continue pain medication. If with increased nausea and vomiting patient may require NG tube. Impression: Nausea, abdominal pain secondary to small bowel obstruction with internal hernia Plan: Continue with above plan of care. Patient seen and evaluated. Patient re sting in bed. No distention noted. Pain well controlled. Continue with IV pain medication. Continue with IV nausea medication. Continue with IV fluids. Surgery to evaluate. Monitor for passage of gas or stool. Patient may require surgical intervention if no improvement. Care discussed with family member I will turn the service over to the hospitalist team tomorrow. I will go plan of care with him. DVT prophylaxis: Lovenox CODE STATUS: Full code Advance care planning: Home at discharge <Celestine Glez - Last Filed: 11/10/20 16:16>
[2020-11-10] MEDS ORDERED: ONDANSETRON 4 MG/2 ML VIAL IV PRN (13:57)
[2020-11-10] MEDS ORDERED: NA CHLORIDE 0.9% 1,000 ML IV SCH (14:00)
[2020-11-10] MEDS ORDERED: Mastisol Adhesive Liq ONE (14:13)
[2020-11-10] MEDS ORDERED: CIPROFLOXACIN 400mg IV 400 MG/200 ML BAG IV ONE (14:37)
[2020-11-10] MEDS ORDERED: METRONIDAZOLE 500mg IVPB 500 MG/100 ML BAG IV ONE (14:37)
[2020-11-10] MEDS ORDERED: LORazepam 2 MG/ML VIAL ONE (14:43)
--- NOTE | 2020-11-10 15:51 | ER ---
Nurse's Notes [facility] Name: Sarina Su Age: 65 yrs Sex: Female : 1955 Arrival Date: 11/10/2020 Time: 12:43 Bed 25 Private MD: Diagnosis: Complete intestinal obstruction, unspecified as to cause Presentation: 11/10 11:00 Chief complaint: Patient states: ABDOMINAL PAIN. Coronavirus screen: At this time, the bp client does not indicate any symptoms associated with coronavirus-19. Ebola Screen: No symptoms or risks identified at this time. Initial Sepsis Screen: Does the patient meet any 2 criteria? No. Patient's initial sepsis screen is negative. Does the patient have a suspected source of infection? No. Patient's initial sepsis screen is negative. Risk Assessment: Do you want to hurt yourself or someone else? Patient reports no desire to harm self or others. Onset of symptoms is unknown. 11:00 Method Of Arrival: Ambulatory bp 11:00 Acuity: LUPE 3 bp Triage Assessment: 11:00 General: Appears distressed, uncomfortable, ill, obese, Behavior is cooperative, bp appropriate for age, agitated, anxious, crying. Pain: Complains of pain in abdomen. EENT: No deficits noted. Neuro: No deficits noted. Cardiovascular: No deficits noted. Respiratory: No deficits noted. GI: Abdomen is non-distended, Abdomen is tender to palpation X 4 quads. : No signs and/or symptoms were reported regarding the genitourinary system. Derm: No deficits noted. Musculoskeletal: No deficits noted. - Immunization history:: Client reports having NOT received the Covid vaccine. - Social history:: Smoking status: unknown. Screenin:00 Abuse screen: Denies threats or abuse. Denies injuries from another. Nutritional bp screening: No deficits noted. Tuberculosis screening: No symptoms or risk factors identified. Fall Risk None identified. Assessment: 11:00 General: SEE TRIAGE NOTE. bp 13:00 Reassessment: No changes from previously documented assessment. Patient and/or family bp updated on plan of care and expected duration. Pain level reassessed. ALL CURRENT ORDERS COMPLETED. 14:30 Reassessment: PT RESISTING NGT PLACEMENT. BENEFITS EXPLAINED, BUT PT REMAINS bp NON-COMPLIANT. 16:10 Reassessment: IRIS YEN, SISTER, . bp Vital Signs: 11:00 BP 165 / 78; Pulse 84; Resp 16; Temp 98; Pulse Ox 100% ; bp 12:00 BP 165 / 78; Pulse 87; Resp 19; Pulse Ox 100% ; bp 13:00 BP 165 / 80; Pulse 83; Resp 17; Pulse Ox 99% ; bp 15:00 BP 163 / 99; Pulse 92; Resp 17; Pulse Ox 97% ; bp ED Course: 11:00 Patient has correct armband on for positive identification. Bed in low position. Call bp light in reach. Side rails up X2. Adult w/ patient. 11:10 Inserted saline lock: 20 gauge in left antecubital area, using aseptic technique. Blood bp collected. 12:43 Patient arrived in ED. iw 12:51 Suma Nguyễn MD is Attending Physician. sp3 13:05 Michelet Mckeon, RN is Primary Nurse. bp 13:49 Celestine Glez DO is Hospitalizing Provider. sp3 13:54 Triage completed. bp Administered Medications: 14:30 Drug: Ativan (LORazepam) 1 mg Route: IVP; Site: left antecubital; bp 15:06 Follow up: Response: No adverse reaction bp Outcome: 13:50 Decision to Hospitalize by Provider. sp3 11/12 13:52 Patient left the ED. Signatures: Sarai Church, RN DHEERAJ Alta Frances RN RN Michelet Mckeon, DHEERAJ ESQUEDA bp Suma Nguyễn MD MD sp3
--- NOTE | 2020-11-10 15:51 | EDPHYS ---
Physician Documentation [facility] Name: Sarina Su Age: 65 yrs Sex: Female : 1955 Arrival Date: 11/10/2020 Time: 12:43 Bed 25 Private MD: ED Physician Suma Nguyễn HPI: 11/10 13:24 This 65 yrs old Female presents to ER via Unassigned with unknown complaint. sp3 13:24 See paper chart for downtime charting.. sp3 - Immunization history:: Client reports having NOT received the Covid vaccine. - Social history:: Smoking status: unknown. Vital Signs: 11:00 BP 165 / 78; Pulse 84; Resp 16; Temp 98; Pulse Ox 100% ; bp 12:00 BP 165 / 78; Pulse 87; Resp 19; Pulse Ox 100% ; bp 13:00 BP 165 / 80; Pulse 83; Resp 17; Pulse Ox 99% ; bp 15:00 BP 163 / 99; Pulse 92; Resp 17; Pulse Ox 97% ; bp MDM: 12:51 Patient medically screened. sp3 11/10 15:45 Order name: CBC with Automated Diff EDMS 11/10 15:45 Order name: Comprehensive Metabolic Panel EDMS 11/10 15:45 Order name: Lipase EDMS 11/10 15:45 Order name: Urine Dipstick-Ancillary EDMS 11/10 15:45 Order name: Creatine Phosphokinase EDMS 11/11 03:11 Order name: Protime (+INR) EDMS 11/11 03:11 Order name: PTT, Activated Partial Thromb EDMS 11/11 03:11 Order name: Lactate EDMS 11/11 03:11 Order name: CBC with Automated Diff EDMS 11/11 03:24 Order name: Comprehensive Metabolic Panel EDMS 11/11 03:24 Order name: Liver (Hepatic) Function EDMS 11/11 03:24 Order name: Phosphorus EDMS 11/11 03:24 Order name: Magnesium EDMS 11/11 03:24 Order name: Amylase EDMS 11/10 20:46 Order name: CT EDMS 11/11 03:24 Order name: Lipase EDMS 11/11 09:49 Order name: RAD EDMS 11/11 18:57 Order name: CORONAVIRUS EDMS 11/11 19:54 Order name: SARS-COV-2 RT PCR EDMS 11/12 02:48 Order name: Lactate EDMS 11/12 03:01 Order name: PTT, Activated Partial Thromb EDMS 11/12 03:02 Order name: CBC with Automated Diff EDMS 11/12 03:11 Order name: Comprehensive Metabolic Panel EDMS 11/12 03:11 Order name: Liver (Hepatic) Function EDMS 11/12 03:11 Order name: Phosphorus EDMS 11/12 03:11 Order name: Magnesium EDMS 11/12 03:11 Order name: Amylase EDMS 11/12 03:11 Order name: Lipase EDMS 11/12 08:03 Order name: RAD EDMS 11/12 08:04 Order name: RAD EDMS Administered Medications: 14:30 Drug: Ativan (LORazepam) 1 mg Route: IVP; Site: left antecubital; bp 15:06 Follow up: Response: No adverse reaction bp Disposition Summary: 11/10/20 13:50 Hospitalization Ordered Hospitalization Status: Inpatient Admission sp3 Provider: Celestine Glez sp3 Condition: Stable sp3 Problem: new sp3 Symptoms: are unchanged sp3 Bed/Room Type: Standard sp3 Location: [facility] ER HOLD(11/10/20 16:28) bp Room Assignment: ERHOLD-(11/10/20 16:28) bp Diagnosis - Complete intestinal obstruction, unspecified as to cause sp3 Forms: - Medication Reconciliation Form sp3 - SBAR form sp3 Signatures: Dispatcher [employer] [facility] Michelet Mckeon, RN RN bp Suma Nguyễn MD MD sp3 Corrections: (The following items were deleted from the chart) 16:28 13:50 Telemetry/MedSurg (Inpatient) sp3 bp 16:28 13:50 sp3 bp
[2020-11-10] MEDS: D5 0.9 NS 1,000 ML IV SCH (17:00)
[2020-11-10] MEDS ORDERED: D5W 1,000 ML IV ONE (17:25)
[2020-11-10] MEDS ORDERED: MORPHINE 2 MG/ML SYR ONE ×2 (17:53→22:28)
[2020-11-10] MEDS: MORPHINE 2 MG/ML SYR IV PRN ×2 (18:00→22:04)
[2020-11-10 18:58] VITALS: BMI 29.2
[2020-11-10] MEDS ORDERED: HYDRALAZINE HCL 20 MG/ML VIAL IV PRN (20:14)
--- NOTE | 2020-11-10 20:45 | RAD REPORT ---
EXAM DESCRIPTION: CTAbdomen Pelvis W Contrast - 11/10/2020 5:17 pm CLINICAL HISTORY: . abd pain COMPARISON: Abdomen Pelvis W Contrast dated 05/15/2019 TECHNIQUE: Biphasic CT imaging of the abdomen and pelvis was performed with 100 ml non-ionic IV cont rast. All CT scans are performed using dose optimization technique as appropriate and may include automated exposure control or mA/KV adjustment according to patient size. FINDINGS: Lower chest: Irregular airspace opacities in the lower lungs, right greater than left. Liver: No acute abnormality or suspicious lesions. Biliary: Cholecystectomy. Stomach: Mildly distended stomach. Duodenum: Duodenum is mildly distended. Pancreas: No significant abnormality. Spleen: No significant abnormality. Adrenal: No suspicious lesions. Kidney/ureter: No hydronephrosis. No renal calculi. Renal lesions which are too small to characterize but statistically benign. Retroperitoneum: No retroperitoneal adenopathy. Vascular: No aneurysm. Bowel: The small bowel including the duodenum and proximal jejunum are mildly dilated. The jejunum me asures up to 4.2 centimeters There is an abrupt transition point as the small-bowel takes a sharp tur n toward the left. There is associated mesenteric edema.. Normal appendix. Peritoneum: Mesenteric edema. Bladder: Grossly unremarkable. Reproductive: No adnexal masses. Bones: No acute fracture. Other: n/a IMPRESSION: Proximal jejunal dilatation and duodenal distension with abrupt transition point. The co urse of the jejunum which is sharply angulated at the transition point raises concern for an internal hernia. Recommend surgical consultation. Irregular airspace disease in the lung bases could represent pneumonia or sequela of recent pneumonia .
[2020-11-11] MEDS: D5 0.9 NS 1,000 ML IV SCH ×3 (02:33→17:37)
[2020-11-11] MEDS: ACETAMINOPHEN 500 MG TAB PO PRN ×2 (02:57→19:22)
[2020-11-11 03:01] LABS: Absolute Lymphocytes (CBC) 1.6 K/uL (0.7-4.9); Basophils % 0.6 % (0-1.3); Hematocrit 36.2 % (36.0-45.0); Lymphocytes % 20.3 % (15.3-44.8); MPV 6.4 fL (7.6-11.3); RBC Red Blood Cell Count 3.95 M/uL (3.86-4.86)
[2020-11-11 03:03] LABS: Protime INR 0.98
[2020-11-11] MEDS ORDERED: ACETAMINOPHEN 500 MG TAB ONE ×2 (03:16→19:47)
[2020-11-11 03:22] LABS: Albumin 3.5 g/dL (3.4-5.0); Bilirubin Direct 0.2 mg/dL (0-0.2); Bilirubin Total 0.5 mg/dL (0.2-1.0); Magnesium 2.1 mg/dL (1.8-2.4); Phosphorus 3.4 mg/dL (2.5-4.9); Potassium 4.2 mmol/L (3.5-5.1); Protein, Total 7.7 g/dL (6.4-8.2)
[2020-11-11] MEDS ORDERED: HYDRALAZINE HCL 20 MG/ML VIAL ONE ×2 (04:50→22:24)
--- NOTE | 2020-11-11 09:18 | CON ---
Date of Consultation: 11/11/2020 Reason: Small bowel obstruction. History Of Present Illness: The patient is a 65-year-old female who comes in to the emergency room with 2 days of abdominal pain, nausea, vomiting, and constipation. She states that it start ed evening after she ate some spaghetti and meatballs. She has not had a bowel movement for a couple of days, and she denies passing gas, but she states that her pain is much better now. Ther e is no pain, no nausea, no vomiting today. No sore throat, runny nose, cough, headaches, or dizzine ss. No chest pain. No fever or chills. Review of Systems: Otherwise unremarkable. Past Medical History: Significant for obesity. Past Surgical History: Lap-Band insertion and removal. Allergies: NONE. Social History: The patient does not smoke or drink alcohol. Family History: Noncontributory. Physical Examination: Vital Signs: Stable. She is afebrile. General: She is awake, alert, and oriented x3. Head and Neck: Cranial nerves 2 through 12 are grossly within normal limits. No neck masses. No JV D. Throat clear. Neck supple. Chest: Clear. Heart: S1 and S2. Abdomen: Soft, nondistended, nontender. Positive bowel sounds. Extremities: Neurovascularly intact. Neuro: Nonfocal. Laboratory Data: White count is normal. There is no left shift today. There was slight left shift yesterday. INR is 0.98. Chemistry reviewed. There is no acidosis. CT of the abdomen and pelvis re viewed. Proximal jejunal dilatation and duodenal distention with abrupt transition point, sharply an gulated raises concern for an internal hernia and recommend surgical consultation. The nishant swenson had an abdominal x-ray done today which has not been read by the radiologist yet but looking at it is no worse than yesterday and it appears to be air in the colon. Assessment: A 65-year-old female with abdominal pain and possible small bowel obstruction with inter nal herniation. Recommendations: Clinically, the patient does not appear to be in any acute distress at this time. I would recommend getting an official reading on the x-ray, may be keeping her n.p.o. for an another day and then when she starts having some bowel function, we can begin her on clear liquids. If she d oes not, then she may benefit from a small bowel series and further evaluation. Should she not impro ve with medical management, she may need surgical intervention. Plan of care discussed in detail wit h the patient. /MODL Voice ID: [id number] Report ID: [id number]
[2020-11-11] MEDS ORDERED: D5 0.45 NS 0 ML IV ONE (09:22)
[2020-11-11] MEDS ORDERED: D5 0.9 NS 1,000 ML IV ONE ×2 (09:28→18:47)
--- NOTE | 2020-11-11 09:49 | RAD REPORT ---
EXAM DESCRIPTION: RAD - Abdomen 1 View (KUB) - 11/11/2020 7:01 am CLINICAL HISTORY: Abdomen pain. FINDINGS: Mildly dilated loop of jejunum within left upper quadrant. Remainder the bowel gas pattern is unremarkable. This could represent an ileus or partial small bowel obstruction
[2020-11-11] MEDS ORDERED: LORazepam 2 MG/ML VIAL IV ONE (10:16)
[2020-11-11] MEDS ORDERED: LORazepam 2 MG/ML VIAL ONE (10:34)
[2020-11-11] MEDS ORDERED: MINERAL OIL 30 ML UCUP PO ONE (17:31)
[2020-11-11] MEDS ORDERED: MINERAL OIL 30 ML UCUP PO SCH (21:00)
[2020-11-12] MEDS: D5 0.9 NS 1,000 ML IV SCH ×2 (00:17→06:11)
[2020-11-12] MEDS ORDERED: D5W 1,000 ML IV ONE ×2 (00:53→05:23)
[2020-11-12 02:38] LABS: Absolute Lymphocytes (CBC) 1.8 K/uL (0.7-4.9); Basophils % 0.5 % (0-1.3); Hematocrit 33.3 % (36.0-45.0); MPV 6.4 fL (7.6-11.3); RBC Red Blood Cell Count 3.64 M/uL (3.86-4.86)
[2020-11-12 02:55] LABS: ALT/SGPT 16 U/L (12-78); AST/SGOT 12 U/L (15-37); Albumin 2.8 g/dL (3.4-5.0); Alkaline Phosphatase 119 U/L (45-117); Amylase 86 U/L (25-115); BUN Blood Urea Nitrogen 11 mg/dL (7-18); Bicarbonate 27 mmol/L (21-32); Bilirubin Direct < 0.1 mg/dL (0-0.2); Bilirubin Total 0.5 mg/dL (0.2-1.0); Glucose Level 124 mg/dL (74-106); Lipase 243 U/L (73-393); Magnesium 2.2 mg/dL (1.8-2.4); Phosphorus 3.1 mg/dL (2.5-4.9); Potassium 3.3 mmol/L (3.5-5.1); Protein, Total 6.3 g/dL (6.4-8.2); Sodium Level 138 mmol/L (136-145)
[2020-11-12] MEDS: KCL 20 MEQ/100 mL IVPB 20 MEQ/100 ML BAG IV SCH ×2 (03:32→06:00)
[2020-11-12] MEDS ORDERED: KCL 20 MEQ/100 mL IVPB 20 MEQ/100 ML BAG IV ONE ×2 (03:51→06:25)
--- NOTE | 2020-11-12 08:02 | RAD REPORT ---
EXAM DESCRIPTION: RAD - Chest Pa And Lat (2 Views) - 11/12/2020 6:33 am CLINICAL HISTORY: SBO COMPARISON: Abdomen 1 View (KUB) dated 11/11/2020; Abdomen Pelvis W Contrast dated 11/10/2020 FINDINGS: Lines: None. Lungs: Poorly defined airspace disease in the right mid lung and bilateral lung bases. Pleural: No significant pleural effusions or pneumothorax. Cardiac: The heart size is within normal limits. Bones: No acute fractures. Other: IMPRESSION: Multifocal ill-defined opacities concerning for pneumonia.
--- NOTE | 2020-11-12 08:03 | RAD REPORT ---
EXAM DESCRIPTION: RAD - Abdomen W Erect - 11/12/2020 6:33 am CLINICAL HISTORY: SBO COMPARISON: No comparisons FINDINGS: Nonobstructive bowel gas pattern. No acute osseous abnormality.Visualized lungs are unrema rkable.No abnormal calcifications. IMPRESSION: Nonobstructive bowel gas pattern.
--- NOTE | 2020-11-12 08:17 | P.PN ---
Subjective Date of Service: 11/11/20 Patient is clinically doing better. No pain. She wants to eat. Patient with still obstructive pattern on CT scan and abdominal x-ray. Will repeated in the morning. Review of Systems 10-point ROS is otherwise unremarkable Physical Examination - Vital Signs Temperature: 97.3 F Blood Pressure: 95/63 Pulse: 88 Respirations: 17 Pulse Ox (%): 100 - Physical Exam General: Alert, In no apparent distress, Oriented x3 Respiratory: Clear to auscultation bilaterally, Normal air movement Cardiovascular: Regular rate/rhythm, Normal S1 S2, No murmurs Gastrointestinal: Normal bowel sounds, Soft and benign, Non-distended, No tenderness Musculoskeletal: No clubbing, No swelling, No tenderness Integumentary: No rashes Neurological: Normal speech, Normal tone, Normal affect Lymphatics: No axilla or inguinal lymphadenopathy - Studies Medications List Reviewed: Yes Assessment & Plan - Problems (Diagnosis) (1) Small bowel obstruction Current Visit: Yes Status: Acute - Plan Plan: 1. Repeat abdominal film 2. Patient with increased bowel sounds bowels then we will start diet. May need small-bowel series per General surgery recommendations 3. Encourage out of bed and ambulate 4. IV hydration 5. IV antibiotics is needed 6. Monitor electrolytes 7. GI and DVT prophylaxis Discharge Plan: Home Plan to discharge in: Greater than 2 days - Advance Directives Does patient have a Living Will: No Does patient have a Durable POA for Healthcare: No - Code Status/Comfort Care Code Status Assessed: Yes Code Status: Full Code Critical Care: No Time Spent Managing PTS Care (In Minutes): 35
[2020-11-12 08:28] VITALS: O2SAT 100
--- NOTE | 2020-11-12 11:25 | PN ---
Date of Progress Note: 11/11/2020 Subjective: The patient is awake, alert. No abdominal pain. Passing gas. No bowel movements. Vit als are stable, afebrile. X-ray shows no obstruction. Labs reviewed. Abdomen is soft, nondistended , nontender. Positive bowel sounds. Assessment: Small bowel obstruction, resolved. Recommendations: Will begin diet with clear liquids, if tolerated can be advanced to full liquids. GI saw. Probable discharge in 24 hours if the patient does well. /MODL Voice ID: [id number] Report ID: [id number]
[2020-11-12 13:41] VITALS: BP 132/64; TEMP 98.7
--- NOTE | 2020-11-18 02:43 | P.DS ---
Discharge Date: 11/12/20 Disposition: ROUTINE DISCHARGE Discharge Condition: GOOD Reason for Admission: SBO Consultations: Surgery - Problems (1) Small bowel obstruction Status: Acute Brief History of Present Illness: 65 year old White female presents to ED after two days of severe abdominal pain , nausea , vomiting and constipation. She stated that on evening after being in her usual state of health she began to experience sharp lower abdominal pain that radiated throughout all four quadrants. The pain waxed and waned and was about a 4/10. The pain was sudden and she did not take any medications to alleviate the discomfort. The abdominal pain was quickly followed by constipation. Her abdominal pain continued and she developed nausea and then vomited two times yesterday. She was able to drink water and keep it down. Today , her pain had intensified and she came to ED for further evaluation. She denies any recent fever , hemoptysis, diarrhea , hematochezia, melena. Upon arrival to the ED, she received zofran ,tylenol. Hospital Course: Patient is clinically doing well. Patient had flatus. Patient's abdominal symptoms have resolved. Patient is tolerating diet. She does not want stay in the hospital any longer so she is stable for discharge home. Patient will follow with General surgery in 1-2 weeks. Vital Signs/Physical Exam: Temp Pulse Resp BP Pulse Ox 98.7 F 94 H 17 132/64 99 11/12/20 12:00 11/12/20 12:00 11/12/20 08:17 11/12/20 12:00 11/12/20 12:00 General: Alert, In no apparent distress, Oriented x3 Laboratory Data at Discharge: WBC 6.10 K/uL (4.3-10.9) D 11/12/20 02:08 Hgb 11.3 g/dL (12.0-15.0) L 11/12/20 02:08 Hct 33.3 % (36.0-45.0) L 11/12/20 02:08 Plt Count 423 K/uL (152-406) H 11/12/20 02:08 PT 11.3 SECONDS (9.5-12.5) 11/11/20 02:21 INR 0.98 11/11/20 02:21 APTT 22.5 SECONDS (24.3-36.9) L 11/12/20 02:08 Sodium 138 mmol/L (136-145) 11/12/20 02:08 Potassium Cancelled 11/12/20 14:00 BUN 11 mg/dL (7-18) 11/12/20 02:08 Creatinine 0.64 mg/dL (0.55-1.3) 11/12/20 02:08 Glucose 124 mg/dL (74-106) H 11/12/20 02:08 Phosphorus 3.1 mg/dL (2.5-4.9) 11/12/20 02:08 Magnesium 2.2 mg/dL (1.8-2.4) 11/12/20 02:08 Total Bilirubin 0.5 mg/dL (0.2-1.0) 11/12/20 02:08 AST 12 U/L (15-37) L 11/12/20 02:08 ALT 16 U/L (12-78) 11/12/20 02:08 Alkaline Phosphatase 119 U/L (45-117) H 11/12/20 02:08 Amylase 86 U/L (25-115) 11/12/20 02:08 Lipase 243 U/L (73-393) 11/12/20 02:08 Home Medications: Phentermine HCl [Adipex-P] 37.5 mg PO EVERY 7TH DAY 03/31/16 Amox/K Clav [Augmentin 600 MG/5 ML Susp] 5 ml PO BID #100 ml 11/12/20 Fluconazole [Diflucan] 100 mg PO DAILY #7 tablet 11/12/20 Tramadol HCl [Ultram] 50 mg PO Q12HP PRN #30 tablet 11/13/20 New Medications: Amox/K Clav [Augmentin 600 MG/5 ML Susp] 5 ml PO BID #100 ml Fluconazole [Diflucan] 100 mg PO DAILY #7 tablet Tramadol HCl [Ultram] 50 mg PO Q12HP PRN #30 tablet PRN Reason: Pain Scale 8-10 (Severe) Physician Discharge Instructions: OK TO DC IV AND DC HOME FOLLOW-UP WITH PCP IN 1-2 WEEKS CALL ME AT [phone] IF ANY QUESTIONS REGARDING HOSPITAL STAY RETURN TO THE ER IF SYMPTOMS WORSENS FOLLOW UP WITH GENERAL SURGERY IN 1-2WEEKS Diet: SOFT Activity: Fall precautions Followup: GADIEL BANKS [Primary Care Provider] - Time spent managing pt's care (in minutes): 35
== END 2020-11-12 17:00 | disposition home or self-care (01) | DRG 390 ==
LOC: ER 08:47 → ERHOLD 13:55
PROVIDERS: ADMIT Family Medicine; ATTEND Family Medicine
DX: K56.609 Unspecified intestinal obstruction, unspecified as to partial versus complete obstruction (principal); Z20.822 Contact with and (suspected) exposure to COVID-19
CPT/HCPCS: 36415; 71046; 74018; 74019; 74177; 80053; 81003; 82150; 82248; 82330; 82550; 83605; 83690; 83735; 84100; 85025; 85610; 85730; 94760; 96374; 99283; J0360; J0744; J1170; J2270; J2405; J3480; J7030; J7042; J7799; U0003

== ENCOUNTER 2023-07-15 11:19 | Emergency (ER) | payer OTHER ==
[2023-07-15] MEDS ORDERED: TETRACAINE HCL 0.5% 4ML OPTH ONE (12:32)
[2023-07-15] MEDS ORDERED: FLUORESCEIN SODIUM 1 MG/WRAP ONE (12:33)
--- NOTE | 2023-07-15 14:02 | ER ---
Nurse's Notes [facility] Name: Sarina Su Age: 67 yrs Sex: Female : 1955 Arrival Date: 07/15/2023 Time: 11:19 Bed 9 Private MD: Diagnosis: Unspecified acute conjunctivitis, left eye Presentation: 07/14 11:29 Chief complaint: Patient states: Was cleaning and had cleaning solution splash into L ph eye, states that she rinsed eye out but still has burning to outer corner of eye, denies loss of vision. Coronavirus screen: Vaccine status: Patient reports receiving the 2nd dose of the covid vaccine. Ebola Screen: No symptoms or risks identified at this time. Initial Sepsis Screen: Does the patient meet any 2 criteria? No. Patient's initial sepsis screen is negative. Does the patient have a suspected source of infection? No. Patient's initial sepsis screen is negative. Risk Assessment: Do you want to hurt yourself or someone else? Patient reports no desire to harm self or others. Onset of symptoms was July 15, 2023. 11:29 Method Of Arrival: Ambulatory 11:29 Acuity: LUPE 4 ph Triage Assessment: 11:35 General: Appears in no apparent distress. Behavior is calm, cooperative. Pain: ph Complains of pain in left eye. Historical: - Allergies: 11:34 No Known Allergies; ph - Home Meds: 11:34 semeglutide [Active]; ph - PMHx: 11:34 Depression; ph - Immunization history:: Adult Immunizations unknown. - Infectious Disease History:: Denies. - Social history:: Smoking status: Patient denies any tobacco usage or history of. - Family history:: not pertinent. Screenin:30 [facility] ED Fall Risk Assessment (Adult) History of falling in the last 3 months, me1 including since admission No falls in past 3 months (0 pts) Confusion or Disorientation No (0 pts) Intoxicated or Sedated No (0 pts) Impaired Gait No (0 pts) Mobility Assist Device Used No (0 pt) Altered Elimination No (0 pt) Score/Fall Risk Level 0 - 2 = Low Risk Maintained a safe environment, Provided non-skid footwear, Hourly rounding (assess needs \T\ fall precautionary measures) done. Abuse screen: Denies threats or abuse. Nutritional screening: No deficits noted. Tuberculosis screening: No symptoms or risk factors identified. Vital Signs: 11:29 BP 132 / 72; Pulse 87; Resp 18; Temp 98.2; Pulse Ox 99% on R/A; Weight 51.26 kg; Height ph 5 ft. 0 in. ; 11:29 Body Mass Index 22.07 (51.26 kg, 152.4 cm) ph ED Course: 11:21 Patient arrived in ED. mr 11:34 Triage completed. ph 11:35 Arm band placed on Patient placed in waiting room, Patient notified of wait time. ph 11:44 Dov Albarado MD is Attending Physician. [facility] 12:32 Gracie Layne, DHEERAJ is Primary Nurse. me1 14:01 Kumar Avery MD is Referral Physician. [facility] 14:30 Patient has correct armband on for positive identification. Bed in low position. Side me1 rails up X 1. Provided Education on: POC. Verbalized understanding. . Client placed on continuous cardiac and pulse oximetry monitoring. NIBP monitoring applied. Pulse ox on. NIBP on. 14:30 Warm blanket given. me1 14:30 No provider procedures requiring assistance completed. Patient did not have IV access me1 during this emergency room visit. Administered Medications: 13:50 Drug: Tetracaine Ophthalmic Drops 0.5 % 1 drops Ophthalmic once {Note: By Dr Albarado.} me1 Route: Ophthalmic; Site: left eye; 14:21 Follow up: Response: No adverse reaction me1 14:23 Drug: ERYTHromycin Ophthalmic Ointment 1 application Ophthalmic once Route: Ophthalmic; me1 Site: left eye; Medication: 14:30 VIS not applicable for this client. me1 Outcome: 14:01 Discharge ordered by . [facility] 14:30 Patient left the ED. me1 14:30 Discharged to home ambulatory, me1 14:30 Condition: stable 14:30 Discharge instructions given to patient, Instructed on discharge instructions, follow up and referral plans. medication usage, Demonstrated understanding of instructions, follow-up care, medications, Prescriptions given X 1, Signatures: Dov Albarado MD MD cha Rivera, Mary, Reg Reg mr TabaresChelsea, RN RN Gracie Layne, DHEERAJ RN me1 Corrections: (The following items were deleted from the chart) 13:51 11:29 Chief complaint: Patient states: Was cleaning and had cleaning solution splash me1 into L eye, states that she rinsed eye out but still has burning to outer corner of eye, denies loss of vision ph
--- NOTE | 2023-07-15 14:02 | EDPHYS ---
Physician Documentation [facility] Name: Sarina Su Age: 67 yrs Sex: Female : 1955 Arrival Date: 07/15/2023 Time: 11:19 Bed 9 Private MD: ED Physician Dov Albarado HPI: 07/14 13:55 This 67 yrs old Female presents to ER via Ambulatory with complaints of emily Chemical Exposure In Eye. 13:55 The patient is experiencing pain, redness, The patient sustained a splash. Onset: The emily symptoms/episode began/occurred just prior to arrival, today. Duration: the symptoms are episodic. Aggravated by blinking, Alleviated by covering eye. Associated signs and symptoms: Pertinent positives: None. Pertinent negatives: None. Patient wears glasses. Severity of symptoms: At their worst the symptoms were mild in the emergency department the symptoms are unchanged. The patient has not experienced similar symptoms in the past. Historical: - Allergies: 11:34 No Known Allergies; ph - Home Meds: 11:34 semeglutide [Active]; ph - PMHx: 11:34 Depression; ph - Immunization history:: Adult Immunizations unknown. - Infectious Disease History:: Denies. - Social history:: Smoking status: Patient denies any tobacco usage or history of. - Family history:: not pertinent. ROS: 13:55 Constitutional: Negative for fever, chills, and weight loss, ENT: Negative for injury, emily pain, and discharge, Neck: Negative for injury, pain, and swelling, Cardiovascular: Negative for chest pain, palpitations, and edema, Respiratory: Negative for shortness of breath, cough, wheezing, and pleuritic chest pain, Abdomen/GI: Negative for abdominal pain, nausea, vomiting, diarrhea, and constipation, Back: Negative for injury and pain, : Negative for injury, bleeding, discharge, and swelling, MS/Extremity: Negative for injury and deformity, Skin: Negative for injury, rash, and discoloration, Neuro: Negative for headache, weakness, numbness, tingling, and seizure, Psych: Negative for depression, anxiety, suicide ideation, homicidal ideation, and hallucinations, Allergy/Immunology: Negative for hives, rash, and allergies, Endocrine: Negative for neck swelling, polydipsia, polyuria, polyphagia, and marked weight changes, Hematologic/Lymphatic: Negative for swollen nodes, abnormal bleeding, and unusual bruising, 13:55 Eyes: Positive for injury or acute deformity, itching, pain, Exam: 13:55 Constitutional: This is a well developed, well nourished patient who is awake, alert, emily and in no acute distress. Head/Face: Normocephalic, atraumatic. ENT: Nares patent. No nasal discharge, no septal abnormalities noted. Tympanic membranes are normal and external auditory canals are clear. Oropharynx with no redness, swelling, or masses, exudates, or evidence of obstruction, uvula midline. Mucous membranes moist. Neck: Trachea midline, no thyromegaly or masses palpated, and no cervical lymphadenopathy. Supple, full range of motion without nuchal rigidity, or vertebral point tenderness. No Meningismus. Chest/axilla: Normal chest wall appearance and motion. Nontender with no deformity. No lesions are appreciated. Cardiovascular: Regular rate and rhythm with a normal S1 and S2. No gallops, murmurs, or rubs. Normal PMI, no JVD. No pulse deficits. Respiratory: Lungs have equal breath sounds bilaterally, clear to auscultation and percussion. No rales, rhonchi or wheezes noted. No increased work of breathing, no retractions or nasal flaring. Abdomen/GI: Soft, non-tender, with normal bowel sounds. No distension or tympany. No guarding or rebound. No evidence of tenderness throughout. Back: No spinal tenderness. No costovertebral tenderness. Full range of motion. Skin: Warm, dry with normal turgor. Normal color with no rashes, no lesions, and no evidence of cellulitis. MS/ Extremity: Pulses equal, no cyanosis. Neurovascular intact. Full, normal range of motion. Neuro: Awake and alert, GCS 15, oriented to person, place, time, and situation. Cranial nerves II-XII grossly intact. Motor strength 5/5 in all extremities. Sensory grossly intact. Cerebellar exam normal. Normal gait. Psych: Awake, alert, with orientation to person, place and time. Behavior, mood, and affect are within normal limits. 13:55 Eyes: Periorbital structures: appear normal, no acute changes, no abrasion, no cellulitis, no contusion, no ecchymosis, no erythema, no laceration, no swelling, Pupils: no acute changes, equal, round, and reactive to light and accomodation, Extraocular movements: no acute changes, Conjunctiva: normal, no acute changes, Corneas: are normal, no acute changes, Sclera: no appreciated abnormality, no acute changes, Anterior chamber: normal, no acute changes, Lids and lashes: appear normal, no acute changes, funduscopic exam reveals no obvious abnormalities, no acute changes, Visual chopra: are intact, Nystagmus: is not appreciated, Vital Signs: 11:29 BP 132 / 72; Pulse 87; Resp 18; Temp 98.2; Pulse Ox 99% on R/A; Weight 51.26 kg; Height ph 5 ft. 0 in. ; 11:29 Body Mass Index 22.07 (51.26 kg, 152.4 cm) ph MDM: 11:45 Patient medically screened. emily 13:58 Differential diagnosis: Corneal abrasion of Corneal ulcer of Foreign body in left eye. emily Acute iritis of Chemical conjunctivitis in left eye. Data reviewed: vital signs, nurses notes. Consideration of Admission/Observation Escalation of care including admission/observation considered. I considered the following discharge prescriptions or medication management in the emergency department Medications were administered in the Emergency Department. See MAR. Test considered but Not performed: Labs: no labs. Care significantly affected by the following chronic conditions: depression. 07/14 11:46 Order name: [employer]. Order: IRRIGATE EYE; Complete Time: 12:48 [facility] 07/14 11:46 Order name: Eye Tray; Complete Time: 12:36 [facility] 07/14 11:46 Order name: Fluoresene Opth strip; Complete Time: 12:33 [facility] 07/14 11:46 Order name: [employer]. Order: pH PAPER TEST; Complete Time: 13:49 [facility] Administered Medications: 13:50 Drug: Tetracaine Ophthalmic Drops 0.5 % 1 drops Ophthalmic once {Note: By Dr Albarado.} me1 Route: Ophthalmic; Site: left eye; 14:21 Follow up: Response: No adverse reaction me1 14:23 Drug: ERYTHromycin Ophthalmic Ointment 1 application Ophthalmic once Route: Ophthalmic; me1 Site: left eye; Disposition Summary: 07/15/23 14:01 Discharge Ordered Notes: Location: Home emily Problem: new emily Symptoms: have improved emily Condition: Stable emily Diagnosis - Unspecified acute conjunctivitis, left eye emily Followup: emily - With: Private Physician - When: 2 - 3 days - Reason: Recheck today's complaints, Continuance of care, Re-evaluation by your physician Followup: emily - With: Kumar Avery MD - When: 2 - 3 days - Reason: Recheck today's complaints, Re-evaluation by your physician Discharge Instructions: - Discharge Summary Sheet emily - Chemical Conjunctivitis, Adult, [id number] emily - Chemical Conjunctivitis, Adult emily - How to Use Eye Drops and Eye Ointments emily Forms: - Medication Reconciliation Form emily - Antibiotic Education emily - Prescription Opioid Use emily - Patient Portal Instructions emily - Leadership Thank You Letter emily - Work release form [email or web address] Prescriptions: - Erythromycin 5 mg/gram (0.5 %) Ophthalmic ointment - apply 1 ribbon OPHTHALMIC route every 8 hours; 3.5 gram; Refills: 0, Product emily Selection Permitted Signatures: Dov Albarado MD MD cha Hall, Patricia, RN RN Gracie Layne RN RN me1
[2023-07-15] MEDS ORDERED: ERYTHROMYCIN 3.5GM OPTH OINT ONE (14:22)
[2023-07-15 15:18] VITALS: BP 132/72; TEMP 98.2; O2SAT 99
== END 2023-07-15 14:30 | disposition home or self-care (01) ==
LOC: ER 11:19
DX: H10.32 Unspecified acute conjunctivitis, left eye (principal)
CPT/HCPCS: 99283